=== PATIENT | female | born 1945 | race Caucasian/White ===

== ENCOUNTER 2016-12-30 10:25 | Day surgery (SDC) | payer MEDICARE, OTHER ==
[~2016-12-30] VITALS: Ht 172.7 cm; Wt 81.8 kg
[~2016-12-30 10:25] MED LIST: ASPI325T32 PO; BET80 PO; CYAN250L PO; METH5TAB5 PO
[2016-12-30] MEDS ORDERED: Propofol 10,000 mCg/mL 20 mL Inj ONE (10:26)
[2016-12-30 11:19] VITALS: BP 122/74; PULSE 95; RESP 18; O2SAT 97
[2016-12-30 11:23] LABS: BASOPHILS % (AUTO) 0.6 % (0-3); EOSINOPHILS % (AUTO) 1.9 % (0-5); MONOCYTES % (AUTO) 10.8 % (4-12); Mean Corpuscular Hemoglobin 29.9 pg (27.0-35.0); Mean Corpuscular Volume 90.6 fL (81-100); NEUTROPHILS % (AUTO) 62.6 % (40-74); Platelet Count 245 bil/L (150-400)
[2016-12-30] MEDS ORDERED: CHOL10008 PO (11:36)
[2016-12-30] MEDS ORDERED: MULT-666 PO (11:36)
[2016-12-30] MEDS ORDERED: DABI150C PO (11:36)
[2016-12-30 11:40] LABS: INR 0.97 ratio
[2016-12-30] MEDS ORDERED: Lactated Ringer's 500 ML IV PRN (12:07)
[2016-12-30] MEDS ORDERED: Lactated Ringer's 1,000 ML IV SCH (12:07)
--- NOTE | 2016-12-30 12:07 | PCM.HPANE ---
Patient Data Surgeon Admitting Provider: Attending Provider:Simon Malhotra MD Primary Care Physician:Enoc Sebastian MD Other Provider: Reason for Visit Atrial Fibrilation Ht/WT & BMI Height (Feet): 5 Height (Inches): 8.00 Weight (Kilograms): 81.800 Body Mass Index 27.33 Allergies Coded Allergies: Penicillins (Verified Allergy, Severe, 01/04/16) Fever and Rash hyoscyamine (Unverified Allergy, Intermediate, Itching, 01/04/16) codeine (Verified Adverse Reaction, Severe, Nausea,Vomiting, 01/04/16) meperidine (Verified Adverse Reaction, Severe, Hallucinations, 01/04/16) Opioids - Morphine Analogues (Verified Adverse Reaction, Intermediate, Nausea,Vomiting, 01/04/16) hydrocodone bitartrate (Verified Adverse Reaction, Intermediate, Nausea, Vomiting, 01/04/16) hydromorphone (Verified Adverse Reaction, Intermediate, Nausea,Vomiting, ) oxycodone (Verified Adverse Reaction, Intermediate, Anxiety "takes away my sense of well being", 01/04/16) Past Anesthesia History Anesthesia History: Denies:: Anesthesia Reactions Diabetes History Hx Diabetes?: No MRSA MRSA: No Medications Hypertension Medication: No Home Meds Incl Beta Diane: No Active Scripts Sotalol (Betapace)80 Mg [id number] Mg PO BID #60 TAB Ref 6 Prov:Sy Monroy PA-C 01/25/16 Reported Medications Multivitamin (Once Daily)1 Each Tablet1 Each PO 12/30/16 Cholecalciferol (Vitamin D3) (Vitamin D3)1,000 Unit Tab.chew1,000 Unit PO DAILY 12/30/16 Dabigatran Etexilate Mesylate (Pradaxa)150 Mg [id number] Mg PO BID 30 Days 12/30/16 Aspirin 325 Mg [id number] Mg PO DAILY #1 BOTTLE 01/04/16 Methimazole 5 Mg Tablet5 Mg PO DAILY 30 Days 07/01/14 Discontinued Reported Medications Cyanocobalamin (Vitamin B-12) (Vitamin B-12)250 Mcg [id number] Mcg PO DAILY 01/04/16 History History of ENT Problems?: Yes HEENT History: Positive for:: Cataracts (Needs bilateral cataract surgery) Dysphagia (achalasia - surgery to correct) Glaucoma Denies:: Sinus Problem Denture Type: None Teeth Condition: Within Normal Limits Hx of Heart Problems?: Yes Cardiovascular History: Positive for:: Cardiac Surgery (2013 Ablation) Irregular Heartbeat (a. fib, cardioverted multiple times) Denies:: Chest Pain Congestive Heart Failure Edema Heart Murmur Hypertension Pacemaker Thrombophlebitis Other Cardiac History: cardiac ablation 08/2015 Hx of Respiratory Problem?: No Respiratory History: Denies:: Asthma COPD Chest Surgery Dyspnea Emphysema Hemoptysis Pneumonia Tuberculosis Hx Neurologic Problems?: No Neurological History: Denies:: Alzheimer's Disease CVA Dementia Dizziness Headaches Parkinson's Disease Seizures Hx of GI Problems?: Yes Gastrointestinal History: Positive for:: Heartburn Hiatal Hernia Denies:: Diverticulitis Gastroesphageal Reflux Gastrointestinal Bleeding Hepatitis Rectal Bleeding Hx of Problems?: No Genitourinary History: Denies:: HX of Hemodialysis Kidney Stones Urinary Tract Infection HX of Peritoneal Dialysis: No Female Hx: Denies:: Currently Endometriosis Pelvic Inflammatory Problems with Breasts? Hx Musculoskeletal Problems?: Yes Musculoskeletal History: Positive for:: Back Injury (L5, L6 and L7 disks ) Denies:: Joint Replacement Musculoskeletal Trauma Hx of Psycho/Social Problems?: No Psycho Social History: Denies:: Anxiety Bipolar Disorder Hx Depression Suicide Attempt Hx Surgeries?: Yes (Ablation 2013, Achalasia surgery 2007) Hx Any Other Health Problems?: Yes Other History: Positive for:: Endocrine Disease Hospitalization Thyroid Disease Denies:: Cancer History Blood Transfusions: Positive for:: Accept Blood Products? Denies:: Blood Transfuse Reaction Blood Transfusions Hx Diabetes: No Hx Alcohol Use: NoHx Substance Use: No Smoking Status: Former Smoker Have You Smoked inLast 12 mo: No Stop/Bang Treated for Sleep Apnea?: No Do You Have a CPAP Machine?: No KIRSTEN Risk Assessment: Low Risk, <3 Yes Risk Assessment Category Category 1A: Patient has history of documented sleep apnea, and HAS NOT received any narcotic, sedative or anesthesia administration during this stay. Category 1B: Patient has history of documented sleep apnea, and HAS received any narcotic , sedative or anesthesia administration during this stay Category 2: Patient has SUSPECTED Obstructive Sleep Apnea, and HAS received any narcotic , sedative or anesthesia administration during this stay. Category 3: Patient has SUSPECTED Obstructive Sleep Apnea and HAS NOT received narcotic, sedative or anesthesia administration during this stay. Category 4: Outpatient in Procedural Areas with known sleep apnea or who screen positive for High Risk via the STOP/BANG questionnaire. Exam Exam Vital Signs Vital Signs Date Time Temp Pulse Resp B/P Pulse Ox O2 Delivery O2 Flow Rate FiO2 12/30/16 11:19 37.0 95 18 122/74 97 Room Air General Appearance: Oriented X3 HEENT/AIRWAY: MP 2 Lungs: Normal Air Movement Heart: Other Meds/Labs/Diagnostics Labs Test 12/30/16 11:00 White Blood Count 7.2th/mm3 (3.8-10.1) Red Blood Count 4.81mil/mm3 (3.90-5.20) Hemoglobin 14.4g/dL (12.0-15.6) Hematocrit 43.6% (35.0-46.0) Mean Corpuscular Volume 90.6fL (81-100) Mean Corpuscular Hemoglobin 29.9pg (27.0-35.0) Mean Corpuscular Hemoglobin Concent 33.0% (32.0-37.0) Red Cell Distribution Width 13.2% (12.3-15.4) Platelet Count 245bil/L (150-400) Neutrophils (%) (Auto) 62.6% (40-74) Lymphocytes (%) (Auto) 24.0% (14-46) Monocytes (%) (Auto) 10.8% (4-12) Eosinophils (%) (Auto) 1.9% (0-5) Basophils (%) (Auto) 0.6% (0-3) Prothrombin Time 10.4sec (8.1-12.5) Prothromb Time International Ratio 0.97ratio Sodium Level 139mEq/L (134-144) Potassium Level 4.6mEq/L (3.5-5.2) Chloride Level 102mEq/L (97-108) Carbon Dioxide Level 24mmol/L (18-29) Blood Urea Nitrogen 23mg/dL (8-27) Creatinine 0.56mg/dL (0.57-1.00) Estimat Glomerular Filtration Rate 153mL/min (>59) Glucose Level 118mg/dL (60-99) Calcium Level 10.0mg/dL (8.5-10.1) Plan Impression Patient chart reviewed, patient interviewed and anesthestic plan with risks, benefits, and alternatives discussed, and informed consent obtained. ASA Physical Status: ASA2 Mod Systemic Disease Anesthetic Plan: MAC Bene/Risks/Altern/Consents: Yes HP Complete Prior to Induction: Yes Som Yun MD Dec 30, 2016 12:07
[2016-12-30] MEDS ORDERED: EPHEDrine Sulfate 50 mg/mL Inj IVPUSH PRN (12:10)
[2016-12-30] MEDS ORDERED: Phenylephrine 10,000 mCg/mL Inj IVPUSH PRN (12:10)
[2016-12-30] MEDS ORDERED: Dexamethasone 4 mg/mL Inj IVPUSH PRN (12:10)
[2016-12-30] MEDS ORDERED: Ondansetron 2 mg/mL 2 mL Inj IVPUSH PRN (12:10)
[2016-12-30] MEDS ORDERED: Labetalol 5 mg/mL 4 mL Inj IV PRN (12:10)
[2016-12-30] MEDS ORDERED: MetoCLOpramide 5 mg/mL 2 mL Inj IVPUSH PRN (12:10)
[2016-12-30] MEDS ORDERED: Atropine 1 mg/10 mL (Code) Syringe ONE (12:27)
[2016-12-30 12:49] VITALS: BP 145/59; PULSE 74; RESP 16; O2SAT 96
--- NOTE | 2016-12-30 12:50 | NUR ---
Care assumed from Dr Yun anesthesiologist. URSULA completed and patient converted to sinus rhythm independently.Cardioversion not done.
[2016-12-30 13:00] VITALS: BP 132/75; PULSE 72; RESP 15; O2SAT 98
[2016-12-30 13:15] VITALS: BP 134/90; PULSE 72; RESP 12; O2SAT 98
[2016-12-30 13:31] VITALS: BP 137/72; PULSE 73; RESP 18; O2SAT 98
--- NOTE | 2016-12-30 13:40 | NUR ---
Discharge instructions reviewed with patient. Patient sent home ambulatory.
--- NOTE | 2016-12-30 18:05 | DRSVH ---
[facility] [address] [place] [address] Echocardiogram Report Name: LORRIE EDWARDS VStudy Date: 12/31/19 17 Height: 68 in Hospital Exam Location: [facility] Weight: 176 lb Gender: Female BSA: 1.9 m2 : 1945 Age: 70 yrs BP: 127/91 mm Hg Reason For Study: A-FIB. Ordering Physician: Simon Malhotra Performed By: Rachel Cleaning Referring Physician: Dr. Jeff Kaiser Interpretation Summary Afib with controlled rate. Normal LV size, wall thickness, wall motion and LV systolic function. EF is 60-65%. There is severe MAC with moderate associated MR. Aortic valve leaflets are slightly calcified; no regurgitation or stenosis. No evidence of atrial septal defect. Moderate LA enlargement. Procedure: Informed consent for Transesophageal Echocardiogram, and use of a contrast agent as needed, was obtained prior to the procedure. The patient was brought to the [facility] in a fasting state. Sedation was managed by anesthesiologist; see anesthesiology notes for details. An intravenous line was placed. A topical anesthetic agent was used for oropharangeal anesthesia. A bite block was inserted. A multifrequency, multiplane transesopheageal echocardiographic endoscope was inserted and manipulated in the standard fashion to achieve multiplane views. The transesophageal probe was passed without difficulty. A 2D transesophageal echocardiogram with spectral and color flow Doppler was performed. The patient's vital signs, including blood pressure, heart rate, pulse oximetry and cardiac rhythm were monitored throughout the procedure and remained stable. The patient tolerated the procedure well without evidence of orophangeal or esophageal trauma. The patient was in atrial fibrillation with rapid ventricular response during the exam with a heart rate exceeding 100 bpm. There were no complications. Atria: The left atrium is moderately dilated. No left atrial mass or thrombus visualized. No thrombus is detected in the left atrial appendage. There is no Doppler evidence for an atrial septal defect. Mitral Valve: There is severe mitral annular calcification. The mitral valve leaflets appear mildly thickened, but open well. There is moderate mitral regurgitation. Aortic Valve: The aortic valve is trileaflet. The aortic valve is slightly calcified. The aortic valve opens well. No aortic regurgitation is present. Tricuspid Valve: The tricuspid valve leaflets are thin and pliable. There is a trace or physiologic amount of tricuspid regurgitation. Reading Physician:06:04 PM
== END 2016-12-30 23:59 | disposition home or self-care (01) ==
LOC: SOUO 10:25
PROVIDERS: ATTEND Internal Medicine Cardiovascular Disease
DX: I48.91 Unspecified atrial fibrillation (principal); Z53.09 Procedure and treatment not carried out because of other contraindication; I34.0 Nonrheumatic mitral (valve) insufficiency; I34.8 Other nonrheumatic mitral valve disorders; Z79.899 Other long term (current) drug therapy; I48.92 Unspecified atrial flutter; Z79.01 Long term (current) use of anticoagulants; I44.7 Left bundle-branch block, unspecified; E05.20 Thyrotoxicosis with toxic multinodular goiter without thyrotoxic crisis or storm; Z79.82 Long term (current) use of aspirin